=== PATIENT | female | born 1995 | race Hispanic/Latino ===

== ENCOUNTER 2018-12-22 18:45 | Emergency (ER) | payer OTHER ==
[~2018-12-22] VITALS: Ht 154.9 cm; Wt 74.1 kg
--- OUTSIDE RECORDS SUMMARY | 2018-12-22 18:48 | XMS REPORT ---
Author Author [facility] Address Unknown Phone Unavailable Care Team Providers Care Community Resource Officer Name Role Phone Unavailable Unavailable Payers Payer Name Policy Type Policy Number Effective Date Expiration Date Problems This patient has no known problems. Allergies, Adverse Reactions, Alerts Allergy Name Allergy Type Status Severity Reaction(s) Onset Date Inactive Date Treating Clinician Comments No Known Allergies DA Active U 2018-10-15 00:00:00 No Known Drug Intolerances DA Active SV 2009-07-23 00:00:00 No Known Intolerances DA Active U 2009-07-23 00:00:00 No Known Contrast Allergies DA Active U 2008-05-17 00:00:00 No Known Drug Allergies DA Active U 2008-05-17 00:00:00 No Known Food Allergies DA Active U 2008-05-17 00:00:00 No Known Other Allergies DA Active U 2008-05-17 00:00:00 Medications This patient has no known medications.
[2018-12-22] MEDS ORDERED: IBUPROFEN 600 MG TAB PO STA (19:11)
[2018-12-22] MEDS ORDERED: HYDROCODONE/APAP 5MG-325MG TAB PO ONE (20:00)
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
[2018-12-22 20:46] VITALS: BP 105/77
== END 2018-12-22 20:35 | disposition home or self-care (01) ==
LOC: FSED 18:45
DX: M54.2 Cervicalgia (principal); S16.1XXA Strain of muscle, fascia and tendon at neck level, initial encounter; S20.219A Contusion of unspecified front wall of thorax, initial encounter; M25.512 Pain in left shoulder; S63.522A Sprain of radiocarpal joint of left wrist, initial encounter; V47.5XXA Car driver injured in collision with fixed or stationary object in traffic accident, initial encounter; Y92.488 Other paved roadways as the place of occurrence of the external cause
CPT/HCPCS: 71045; 72040; 81025; 99283

== ENCOUNTER 2021-11-02 00:05 | Inpatient (IN) | payer OTHER ==
[~2021-11-02] VITALS: Ht 157.5 cm; Wt 88.9 kg
[2021-11-02 02:11] LABS: BASOPHILS # (AUTO) 0.1 (0.0-0.1); BASOPHILS % 0.7 % (0.0-1.0); EOSINOPHILS # (AUTO) 0.2 (0.0-0.4); EOSINOPHILS % 1.8 % (0.0-6.0); HEMATOCRIT 40.3 % (34.2-44.1); HEMOGLOBIN 12.7 g/dL (12.0-16.0); LYMPHOCYTES # (AUTO) 2.4 (1.0-3.2); MEAN CORPUSCULAR HEMOGLOBIN 27.1 pg (28-32); MEAN CORPUSCULAR HGB CONC 31.5 g/dL (31-35); MEAN CORPUSCULAR VOLUME 85.9 fL (81-99); MONOCYTES # (AUTO) 0.8 (0.2-0.8); MONOCYTES % 7.7 % (4.4-11.3); NEUTROPHILS % 66.5 % (38.7-80.0); PLATELET COUNT 348 x10e3/uL (140-360); RED BLOOD COUNT 4.69 x10e6/uL (3.6-5.1); RED CELL DISTRIBUTION WIDTH 13.5 % (11.7-14.4)
[2021-11-02 02:33] LABS: AMYLASE 48 U/L (25-125); LIPASE 31 U/L (8-78)
[2021-11-02 02:35] LABS: CALCIUM 9.4 mg/dL (8.4-10.2); CREATININE, SERUM 0.84 mg/dL (0.57-1.11)
[2021-11-02 02:41] LABS: CLARITY,URINE CLOUDY (CLEAR); COLOR,URINE AMBER (YELLOW); KETONES,URINE TRACE (NEGATIVE); LEUKOCYTE ESTERASE ,URINE NEGATIVE (NEGATIVE); NITRITE,URINE NEGATIVE (NEGATIVE); PROTEIN,URINE DIPSTICK TRACE (NEGATIVE); URINE UROBILINOGEN 2 mg/dL (0.2 - 1)
[2021-11-02 02:42] LABS: BACTERIA,URINE MANY /HPF; EPITHELIAL CELLS,URINE MANY /LPF; MUCUS,URINE MANY (RARE); RBC,URINE 21-50 /HPF (0-5); WBC,URINE (MAN) 21-50 /HPF (0-5)
[2021-11-02] MEDS ORDERED: ONDANSETRON HCL INJ 2MG/ML 2ML 2 MG/ML VIAL IV PRN (04:45)
[2021-11-02] MEDS: PIPERACILLIN/TAZOBACTAM 3.375 GM in SODIUM CHLORIDE 0.9% 50ML 50 ML IV SCH ×4 (05:37→20:31)
[2021-11-02] MEDS: SODIUM CHLORIDE 0.9% 1000ML 1,000 ML IV SCH ×3 (05:37→20:31)
[2021-11-02] MEDS ORDERED: MELATONIN 5 MG TABLET PO PRN (09:00)
[2021-11-02] MEDS ORDERED: DEXTROSE 50% SYRINGE 50 ML IV PRN (09:00)
[2021-11-02] MEDS ORDERED: ALBUTEROL/IPRATROPIUM 3 ML NEB NEB PRN (09:00)
[2021-11-02] MEDS ORDERED: HYDRALAZINE HCL 20 MG/ML VIAL IV PRN (09:00)
[2021-11-02] MEDS ORDERED: BENZONATATE 100 MG CAP PO PRN (09:00)
[2021-11-02] MEDS ORDERED: DIPHENHYDRAMINE HCL 25 MG CAP PO PRN (09:00)
[2021-11-02] MEDS ORDERED: DOCUSATE SODIUM 100 MG CAP PO PRN (09:00)
[2021-11-02] MEDS ORDERED: CHLORASEPTIC SPRAY 177 ML BTL MM PRN (09:00)
[2021-11-02] MEDS ORDERED: POTASSIUM CHLORIDE 20 MEQ TAB CR PO PRN (09:00)
[2021-11-02] MEDS ORDERED: ACETAMINOPHEN 325 MG TAB PO PRN (09:00)
[2021-11-02] MEDS ORDERED: PHENAZOPYRIDINE HCL 100 MG TAB PO PRN (09:00)
[2021-11-02] MEDS ORDERED: LIDOCAINE 4% PATCH TP PRN (09:00)
[2021-11-02] MEDS ORDERED: PANTOPRAZOLE SOD 40 MG TABEC PO SCH (11:30)
[2021-11-02] MEDS: PANTOPRAZOLE SOD 40 MG TABEC PO SCH ×2 (11:45→17:16)
[2021-11-02] MEDS ORDERED: BUPIVACAINE 0.25% 30ML SDV ONE (12:55)
[2021-11-02 13:17] VITALS: BP 111/65
[2021-11-02 13:24] VITALS: BP 111/65
[2021-11-02 13:30] VITALS: BP 111/65
[2021-11-02] MEDS ORDERED: FENTANYL CITRATE/PF 100MCG/2 ML INJ ONE ×2 (16:29→19:28)
[2021-11-02] MEDS ORDERED: ENOXAPARIN SOD INJ 40 MG/0.4 ML SYR SC SCH (17:00)
[2021-11-02] MEDS: SUCRALFATE 1 GM/10 ML SUSP NG SCH ×2 (17:16→20:31)
[2021-11-02] MEDS: ONDANSETRON HCL INJ 2MG/ML 2ML 2 MG/ML VIAL IV PRN (17:17)
[2021-11-02] MEDS: Morphine 4mg Syringe 4 MG/ML INJ IV PRN (17:17)
[2021-11-02 17:21] VITALS: BP 116/75
[2021-11-02] MEDS ORDERED: PROPOFOL IV EMULSION 10 MG/ML 20 ML VIAL ONE (19:07)
[2021-11-02] MEDS ORDERED: ONDANSETRON HCL INJ 2MG/ML 2ML 2 MG/ML VIAL ONE (19:07)
[2021-11-02] MEDS ORDERED: NEOSTIGMINE 1 MG/ML 10ML VIAL ONE (19:07)
[2021-11-02] MEDS ORDERED: KETOROLAC TROMETHAMINE 30 MG/ML VIAL ONE (19:07)
[2021-11-02] MEDS ORDERED: ROCURONIUM BROMIDE 10 MG/ML 5ML VIAL IV ONE (19:07)
[2021-11-02] MEDS ORDERED: SEVOFLURANE INHAL SOLN 250 ML PEN BTL ONE (19:07)
[2021-11-02] MEDS ORDERED: DEXAMETHASONE SOD PHOS INJ 4 MG/ML SDV ONE (19:07)
[2021-11-02] MEDS ORDERED: LIDOCAINE HCL 2% LOCAL INJ 5 ML SDV VIAL INJ ONE (19:07)
[2021-11-02] MEDS ORDERED: POVIDONE IODINE 0.05% 0.05 % ML PO ONE (19:07)
[2021-11-02] MEDS ORDERED: GLYCOPYRROLATE INJ 0.2 MG/ML VIAL ONE (19:07)
[2021-11-02] MEDS ORDERED: MIDAZOLAM HCL 2 MG/2 ML VIAL ONE (19:28)
[2021-11-02 19:39] VITALS: BP 120/79
[2021-11-02] MEDS: SIMETHICONE 80 MG CHEW PO PRN (19:46)
[2021-11-02] MEDS: HYDROCODONE/APAP 5MG-325MG TAB PO PRN (19:46)
[2021-11-02 20:00] VITALS: BP 120/79
[2021-11-03] VITALS (8 sets, daily range): BP systolic 100–122; BP diastolic 58–78
[2021-11-03] MEDS: SODIUM CHLORIDE 0.9% 1000ML 1,000 ML IV SCH ×3 (02:38→20:45)
[2021-11-03] MEDS: HYDROCODONE/APAP 5MG-325MG TAB PO PRN (03:38)
[2021-11-03 05:40] LABS: BASOPHILS % 0.3 % (0.0-1.0); HEMATOCRIT 37.5 % (34.2-44.1); HEMOGLOBIN 11.9 g/dL (12.0-16.0); LYMPHOCYTES # (AUTO) 1.4 (1.0-3.2); LYMPHOCYTES % 12.4 % (18.0-39.1); MEAN CORPUSCULAR HEMOGLOBIN 26.9 pg (28-32); MEAN CORPUSCULAR HGB CONC 31.7 g/dL (31-35); MEAN CORPUSCULAR VOLUME 84.8 fL (81-99); MONOCYTES # (AUTO) 0.5 (0.2-0.8); MONOCYTES % 4.8 % (4.4-11.3); NEUTROPHILS # (AUTO) 9.2 (2.1-6.9); NEUTROPHILS % 82.1 % (38.7-80.0); PLATELET COUNT 314 x10e3/uL (140-360); RED BLOOD COUNT 4.42 x10e6/uL (3.6-5.1); RED CELL DISTRIBUTION WIDTH 13.1 % (11.7-14.4)
[2021-11-03] MEDS: PIPERACILLIN/TAZOBACTAM 3.375 GM in SODIUM CHLORIDE 0.9% 50ML 50 ML IV SCH ×3 (05:56→22:02)
[2021-11-03] MEDS: SIMETHICONE 80 MG CHEW PO PRN (06:04)
[2021-11-03] MEDS: Morphine 4mg Syringe 4 MG/ML INJ IV PRN ×2 (06:04→10:20)
[2021-11-03] MEDS: ONDANSETRON HCL INJ 2MG/ML 2ML 2 MG/ML VIAL IV PRN (06:06)
[2021-11-03 06:22] LABS: ALANINE AMINOTRANSFERASE 141 IU/L (0-55); ALBUMIN 3.4 g/dL (3.5-5.0); ALKALINE PHOSPHATASE 99 IU/L (40-150); AMYLASE 52 U/L (25-125); BLOOD UREA NITROGEN < 5 mg/dL (7-26); CALCIUM 8.4 mg/dL (8.4-10.2); CARBON DIOXIDE 22 mmol/L (22-29); CHLORIDE 108 mmol/L (98-107); CREATININE, SERUM 0.62 mg/dL (0.57-1.11); EST GLOMERULAR FILTRATION RATE 115 ML/MIN (60-); GLUCOSE 94 mg/dL (74-118); LIPASE 59 U/L (8-78); SODIUM 135 mmol/L (136-145)
[2021-11-03 06:23] LABS: BUN/CREATININE RATIO 8 (6-25)
[2021-11-03] MEDS: SUCRALFATE 1 GM/10 ML SUSP NG SCH ×4 (09:42→21:00)
[2021-11-03] MEDS: PANTOPRAZOLE SOD 40 MG TABEC PO SCH ×2 (09:42→17:39)
[2021-11-04] VITALS (8 sets, daily range): BP systolic 110–120; BP diastolic 63–76
[2021-11-04] MEDS: Morphine 4mg Syringe 4 MG/ML INJ IV PRN (00:32)
[2021-11-04] MEDS: SODIUM CHLORIDE 0.9% 1000ML 1,000 ML IV SCH (04:14)
[2021-11-04] MEDS: PIPERACILLIN/TAZOBACTAM 3.375 GM in SODIUM CHLORIDE 0.9% 50ML 50 ML IV SCH ×3 (05:20→21:28)
[2021-11-04 06:06] LABS: BASOPHILS # (AUTO) 0.1 (0.0-0.1); BASOPHILS % 0.6 % (0.0-1.0); EOSINOPHILS # (AUTO) 0.3 (0.0-0.4); EOSINOPHILS % 3.1 % (0.0-6.0); HEMATOCRIT 33.3 % (34.2-44.1); HEMOGLOBIN 10.6 g/dL (12.0-16.0); LYMPHOCYTES # (AUTO) 3.6 (1.0-3.2); LYMPHOCYTES % 37.1 % (18.0-39.1); MEAN CORPUSCULAR HEMOGLOBIN 27.3 pg (28-32); MEAN CORPUSCULAR HGB CONC 31.8 g/dL (31-35); MEAN CORPUSCULAR VOLUME 85.8 fL (81-99); MONOCYTES # (AUTO) 0.6 (0.2-0.8); MONOCYTES % 6.1 % (4.4-11.3); NEUTROPHILS # (AUTO) 5.2 (2.1-6.9); NEUTROPHILS % 52.8 % (38.7-80.0); PLATELET COUNT 268 x10e3/uL (140-360); RED BLOOD COUNT 3.88 x10e6/uL (3.6-5.1); RED CELL DISTRIBUTION WIDTH 13.6 % (11.7-14.4)
[2021-11-04 06:55] LABS: CREATININE, SERUM 0.67 mg/dL (0.57-1.11); POTASSIUM 3.8 mmol/L (3.5-5.1)
[2021-11-04 07:01] LABS: ANION GAP 5.8 mmol/L (8-16)
[2021-11-04] MEDS: PANTOPRAZOLE SOD 40 MG TABEC PO SCH ×2 (07:30→17:13)
[2021-11-04] MEDS: SUCRALFATE 1 GM/10 ML SUSP NG SCH ×4 (07:30→21:28)
[2021-11-04] MEDS ORDERED: FUROSEMIDE INJ 10 MG/ML 4 ML VIAL IV ONE (12:00)
[2021-11-04] MEDS ORDERED: IOPAMIDOL 370 MG/ML 200 ML INFUS..BTL INJ ONE (12:48)
[2021-11-04] MEDS ORDERED: SODIUM CHLORIDE 0.9% 100 ML ONE (12:48)
[2021-11-04] MEDS ORDERED: ENOXAPARIN SOD INJ 40 MG/0.4 ML SYR SC SCH (17:00)
[2021-11-04 19:37] LABS: % IRON SATURATION 8 % (15-50); IRON 29 ug/dL (50-170); TOTAL IRON BINDING CAPACITY 351 ug/dL (261-478); TRANSFERRIN 251 mg/dL (180-382)
[2021-11-04] MEDS ORDERED: FOLIC ACID 1 MG TAB PO ONE (20:30)
[2021-11-04] MEDS ORDERED: CYANOCOBALAMIN INJ 1,000 MCG/ML VIAL IM ONE (20:30)
[2021-11-05] VITALS: BP 100/69
[2021-11-05 04:00] VITALS: BP 102/67
[2021-11-05] MEDS: PIPERACILLIN/TAZOBACTAM 3.375 GM in SODIUM CHLORIDE 0.9% 50ML 50 ML IV SCH (05:58)
[2021-11-05 08:23] VITALS: BP 107/72
[2021-11-05 08:42] VITALS: BP 107/72
[2021-11-05] MEDS ORDERED: CYANOCOBALAMIN INJ 1,000 MCG/ML VIAL IM SCH (09:00)
[2021-11-05] MEDS ORDERED: IRON SUCROSE 100 MG in SODIUM CHLORIDE 0.9% 100 ML 100 ML IV SCH (09:00)
[2021-11-05] MEDS ORDERED: FOLIC ACID 1 MG TAB PO SCH (09:00)
[2021-11-05] MEDS: PANTOPRAZOLE SOD 40 MG TABEC PO SCH (11:10)
[2021-11-05] MEDS: SUCRALFATE 1 GM/10 ML SUSP NG SCH ×2 (11:11→11:17)
[2021-11-05 12:30] VITALS: BP 123/84
[2021-11-05] MEDS ORDERED: ONDANSETRON HCL 4 MG ORAL DISINTEGRATING TAB PO PRN (12:45)
[2021-11-05] MEDS ORDERED: Tylenol #3 PO (15:06)
[2021-11-05] MEDS ORDERED: PANTOPRAZOLE SO40 MG PO (15:07)
[2021-11-05] MEDS ORDERED: FOLIC ACID0.4 MG PO (15:07)
[2021-11-05] MEDS ORDERED: FLAGYL375 MG PO (15:08)
[2021-11-05] MEDS ORDERED: CEFDINIR300 MG PO (15:08)
[2021-11-05 16:01] VITALS: BP 112/71
== END 2021-11-05 16:16 | disposition home or self-care (01) | DRG 419 ==
LOC: ER 02:27 → ERHOLD 04:39 → MED/SURG3 13:14
PROVIDERS: ADMIT Internal Medicine; ATTEND Internal Medicine
PROC: 0FT44ZZ Resection of Gallbladder, Percutaneous Endoscopic Approach (ICD-10-PCS; principal; 2021-11-02 15:00)
DX: K80.10 Calculus of gallbladder with chronic cholecystitis without obstruction (principal); E66.01 Morbid (severe) obesity due to excess calories; Z68.35 Body mass index [BMI] 35.0-35.9, adult; D64.9 Anemia, unspecified; E86.0 Dehydration; Z20.822 Contact with and (suspected) exposure to COVID-19; D52.9 Folate deficiency anemia, unspecified; D51.9 Vitamin B12 deficiency anemia, unspecified
CPT/HCPCS: 36415; 71260; 74018; 74181; 76705; 80053; 81001; 82150; 82607; 82746; 83540; 83690; 84466; 84484; 84702; 85025; 85045; 88304; 93005; 94799; 96361; 99284; J1100; J1650; J1756; J1885; J1940; J2001; J2250; J2270; J2405; J2543; J2710; J3010; J3420; J7030; J7050; Q9967; U0002